=== PATIENT | male | born 1995 | race Caucasian/White ===

== ENCOUNTER → 2017-10-07 09:28 | Day surgery (SDC) | payer OTHER ==
[~2017-10-07 09:28] MED LIST: Acetaminophen TAB* 325 MG PO PRN; Buffered Lidocaine 0.9% SYRIN* 5 ML/SYR SYRINGE INTRADERM ONE; Bupivacaine 0.25% W/EPI* 10 ML SDV ONE; Dexamethasone IV* 4 MG/ML 1 ML (4 MG) IV SLOW PU ONE; Dexamethasone IV* 4 MG/ML 1 ML (4 MG) ONE; DiMENhydriNATE IV* 50 MG/ML VIAL IV PUSH PRN; HYDROcodone/ACETAMIN 5-325 MG* 1 TAB ONE; HYDROcodone/ACETAMIN 5-325 MG* 1 TAB PO PRN; Ketorolac INJ* 30 MG/ML 1 ML VIAL IV PRN; Ketorolac INJ* 30 MG/ML 1 ML VIAL ONE; Midazolam* 1 MG/ML 5 ML VIAL (5 MG) ONE; Morphine INJ* 2 MG/ML 1 ML SYRINGE (TWO MG - NEW SYRINGE VERSION) IV PRN; Morphine VIAL* 10 MG/ML 1 ML VIAL ONE; Naloxone* 0.4 MG/ML 1 ML VIAL IV PRN; Ondansetron INJ* 2 MG/ML VIAL IV PRN; Ondansetron INJ* 2 MG/ML VIAL ONE; Propofol* 10 MG/ML 20 ML BTL IV PUSH ONE; Succinylcholine* 20 MG/ML 10 ML VIAL ONE; ceFAZolin 2 GM PREMIX (*) 2 GM/50 ML BAG IVPB ONE; fentaNYL* 50 MCG/ML 2 ML VIAL (100 MCG VIAL) IV PRN; fentaNYL* 50 MCG/ML 5 ML VIAL (250 MCG VIAL) ONE
[2017-10-07 17:52] VITALS: BP 158/91
--- NOTE | 2017-10-08 08:09 | RAD ---
INDICATION: LEFT clavicle ORIF COMPARISON: October 04, 2017 TECHNIQUE: 14.9 seconds fluoroscopy. FINDINGS: Spot images document a cortical plate and fixation screws bridging the mid clavicular fracture with anatomic alignment in the AP projection. IMPRESSION: Interoperative control films. CPT II Codes: G9500
--- NOTE | 2017-10-09 22:15 | OP ---
DATE OF OPERATION: 10/07/17 - [facility] DATE OF : [birth year] SURGEON: Sreedhar Ponce MD EMERGENCY NURSE: WILLARD Massey. A physician pharmaceutical assistant was required for the length of the procedure for help with positioning, instrumentation, retraction, and closure. ANESTHESIOLOGIST: Sreedhar Paul MD ANESTHESIA: General anesthesia, local anesthesia with 10 cc of 0.25% Marcaine with epinephrine. PRE-OP DIAGNOSIS: Left clavicle fracture, midshaft, displaced. POST-OP DIAGNOSIS: Left clavicle fracture, midshaft, displaced. OPERATIVE PROCEDURE: Open reduction internal fixation, left clavicle fracture, midshaft, displaced. 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 X-ray showed a short oblique or transverse midshaft clavicle fracture with approximately 3 cm of shortening and more than 100% of translational displacement deformity. The patient opted for surgery. Discussed risks and potential complications of surgery including bleeding, infection, nerve or blood vessel injury, clavicle refracture, painful hardware. Discussed return to play timeline, and how it would depend on the patient and his family's risk tolerance. ANTIBIOTICS: Ancef 2 g IV. IV FLUIDS: 1700 cc crystalloid. ESTIMATED BLOOD LOSS: Less than 100 cc. FUVP-LI-JHZZ TIME: 97 minutes. RADIATION EXPOSURE: Large C-arm, 14 seconds for an exposure of 0.030 mGy sq. m. SPECIMEN: None. IMPLANTS: Synthes 7-hole left clavicle locking plate, superior. 3.5 screws were placed, three nonlocking and three locking through the plate. One lag screw was placed across the fracture, 2.7 mm. COMPLICATIONS: None. DESCRIPTION OF PROCEDURE: The patient signed a written consent in preoperative holding. Operative extremity was marked in preoperative holding. The patient was taken back to the operating room and placed supine on the operating room table. The patient was sedated and intubated. The operative table was placed in a lazy beach chair position. The patient was well secured to the table. Head and neck were in a comfortable position. I brought C-arm in to confirm that radiographs could be obtained of the clavicle without interference from the metal on the table. These worked well. The patient's left shoulder was prepped and draped. Surgical time-out performed. I made a slightly curved skin incision superior to the left clavicle centered about the fracture site. I then dissected through subcutaneous tissue with a separate knife and then I dissected through muscle and fascia with electrocautery down to the clavicle. The clavicle was cleared off with a periosteal elevator. I debrided the fracture site with curette and rongeur. Reduction was obtained. Due to the short oblique nature of the fracture site, the reduction could not be held with a bone clamp. I considered provisional fixation with a pin, but instead opted for a screw. I drilled and then placed a 2.7-mm full threaded screw, cortical from anterior to posterior across the fracture site, starting in the medial fragment and ending in the lateral fragment. I did not overdrill anteriorly intentionally. This held the reduction nicely. I next spent a good deal of time choosing the appropriate plates. I evaluated both left side and right-sided superior and anterosuperior plates. I looked at both clavicle locking plates as well as LCP plates from the small fragment set. None of them fit perfectly, but the best option which was the left clavicle superior plate. I contoured this using plate benders, so that it fit incredibly nicely onto the cortex of the clavicle without any visible or palpable step-off. I was very happy with this. I next placed one screw medial and lateral to the fracture site through the plate. These were nonlocking. I positioned a second screw in compression mode to compress across the fracture site. Fracture site looked compressed and very stable. I then filled the remainder of the screw holes in the plate except for the central screw hole, which was at the fracture site. I placed one additional nonlocking screw lateral to the fracture and one locking screw lateral to the fracture. Medial to the fracture, I initially placed the same, one nonlocking and one locking screw. However, I did not like the purchase of my nonlocking screw, so I placed a second locking screw. That left a total of two locking screws and one nonlocking screw medial to the fracture and two nonlocking screws and one locking screw lateral to the fracture. Fixation was excellent. Contour of the plate was excellent. Irrigation. I closed the deltotrapezial fascia overlying the clavicle with [id number]-[id number] stitches using Vicryl 0 suture. I closed platysma and some more superficial deltotrapezial fascia with an additional layer of Vicryl 2-0 gywcwa-oy-ahbas stitches. I then closed the subcutaneous layer with buried simple stitches using Vicryl 3- 0 suture. Subcuticular layer was then closed with a running stitch using Monocryl 4-0 suture. Mastisol followed by Steri-Strips. Some local anesthesia , 10 cc was injected into the subcutaneous tissues surrounding the incision site. 4x4s and Tegaderm placed. The patient was placed in a comfortable UltraSling without an abduction pillow. DISPOSITION: The patient was discharged home after the procedure. The patient was given prescription of Percocet to take as needed for pain control and Keflex to take 3 times a day for 7 days to prevent infection postoperatively. The patient will follow up with me 10 to 14 days postoperatively. The patient was given wound care instructions. [id number]/CPS #: [id number] [id number]
== END | disposition home or self-care (01) ==
LOC: OR 09:28
PROVIDERS: ATTEND Orthopaedic Surgery
DX: S42.022A Displaced fracture of shaft of left clavicle, initial encounter for closed fracture (principal); Y93.62 Activity, american flag or touch football
CPT/HCPCS: 76001; C1713; C1776; J0330; J0690; J1100; J1885; J2250; J2270; J2405; J2704; J3010